=== PATIENT | female | born 1950 | race Caucasian/White ===

== ENCOUNTER → 2016-12-08 | Outpatient (CLI) | payer MEDICARE ==
--- NOTE | 2016-12-08 10:28 | BD ---
EXAMINATION TYPE: MG DEXA axial skeleton. DATE OF EXAM: 12/08/2016 10:04 AM COMPARISON: 12.03.2013 DEXA bone scan CLINICAL HISTORY: M85.8 OSTEOPENIA Height: 64 Weight: 135 FRAX RISK QUESTIONS: Alcohol (3 or more units per day): NO Family History (Parent hip fracture): NO Glucocorticoids (More than 3mos): NO (Ex: prednisone, prednisolone, methylprednisolone, dexamethasone, and hydrocortisone). History of Fracture in Adulthood: YES Secondary Osteoporosis: NO 1. Type 1 Diabetes: NO 2. Hyperthyroidism: NO 3. Menopause before 45: YES 4. Malnutrition: NO 5. Chronic liver disease: NO Rheumatoid Arthritis: NO Current Tobacco Use: NO RISK FACTORS HISTORY OF: Other Fractures since Age 48: YES, RT FOOT When: > 48 YRS OLD Family History of Osteoporosis: YES, HER MOTHER Smoke tobacco: NO Drink Alcohol: SOCIAL Active: YES Diet low in dairy products/other sources of calcium: NO Postmenopausal woman: HYST AT 37 YRS OLD Lost more than 2 inches in height since high school: YES Adrenal Insufficiency: NO MEDICATIONS: Additional Medications: NONE TO NOTE Additional History: EARLY MENOPAUSE, FX ADULT, AND TOUCH OF OSTEOARTHRITIS EXAM MEASUREMENTS: Bone mineral densitometry was performed using the [employer] System. Bone mineral density as measured about the Lumbar spine is: ----- L1-L4(G/cm2): 1.224 T Score Values are as follows: ----- L1: 0.5 ----- L2: 0.1 ----- L3: 0.2 ----- L4: 0.5 ----- L1-L4: 0.4 Bone mineral density has: Increased 0.3% since study of: 12.03.2013 Bone mineral density about the R hip (g/cm2): 0.825 Bone mineral density about the L hip (g/cm2): 0.841 T Score values are as follows: -----R Neck: -1.8 -----L Neck: -1.6 -----R Intertrochanter: -2.2 -----L Intertrochanter: -1.7 Bone mineral density has: Decreased -3.1% since study of: 12.03.2013 FRAX %'S: 16.3% FOR A MAJOR OSTEOPOROSIS FX AND 2.5% FOR A HIP FX.......PROBABILITY OF FX IN 10 Y RS TIME IMPRESSION: Osteopenia (T Score between -2.5 and -1 as noted by T score values in the bilateral hips remains pres ent. There remains slightly increased risk of fracture and the patient may be considered for treatmen t. Re-Screen 1-2 years. NOTE: T-SCORE=SD OF THE YOUNG ADULT MEAN.
--- NOTE | 2016-12-09 11:16 | MM ---
Reason for exam: screening (asymptomatic). Last mammogram was performed 2 years ago. History: Patient is postmenopausal. Physical Findings: A clinical breast exam by your physician is recommended on an annual basis and results should be correlated with mammographic findings. MG 3D Screening Mammo W/Cad Bilateral CC and MLO view(s) were taken. Prior study comparison: December 08, 2014, bilateral MG screening mammo w CAD. December 03, 2013, bilateral digital screening mammo w/CAD. The breast tissue is almost entirely fat. There is chronic nodularity in the left breast. No significant changes when compared with prior studies. ASSESSMENT: Benign, BI-RAD 2 RECOMMENDATION: Routine screening mammogram of both breasts in 1 year.
== END | disposition home or self-care (01) ==
LOC: RADMAMWWP 09:11
PROVIDERS: ATTEND Obstetrics & Gynecology
DX: Z12.31 Encounter for screening mammogram for malignant neoplasm of breast (principal); M85.88 Other specified disorders of bone density and structure, other site
CPT/HCPCS: 77080; 77063; G0202

== ENCOUNTER → 2018-06-25 | Outpatient (CLI) | payer MEDICARE ==
--- NOTE | 2018-06-25 11:23 | XR ---
Cervical spine HISTORY: Stiff neck, neck pain 3 views of the cervical spine on 5 images Open-mouth odontoid view is limited. There is minimal anterolisthesis grade 1 C4-5 and C5-6 and C6-7. Multilevel facet arthropathy changes present. Cervical vertebral bodies show preserved height and sandra ne mineralization. Mild disc height loss present at C5-6. IMPRESSION: Mild degenerative disc disease, facet arthropathy.
== END | disposition home or self-care (01) ==
LOC: RADXRMAIN 10:02
PROVIDERS: ATTEND Otolaryngology
DX: M50.30 Other cervical disc degeneration, unspecified cervical region (principal); M46.82 Other specified inflammatory spondylopathies, cervical region; M47.812 Spondylosis without myelopathy or radiculopathy, cervical region
CPT/HCPCS: 72040

== ENCOUNTER → 2018-11-05 | Outpatient (CLI) | payer MEDICARE ==
[2018-11-05 17:47] LABS: LDL Cholesterol,Calculated 106.6 mg/dL (0.0-131.0); VLDL Calculation 13.4 mg/dL (5.00-40.00)
== END | disposition home or self-care (01) ==
LOC: LABWHC1 07:38
PROVIDERS: ATTEND Obstetrics & Gynecology
DX: E78.5 Hyperlipidemia, unspecified (principal); Z13.220 Encounter for screening for lipoid disorders
CPT/HCPCS: 36415; 80061

== ENCOUNTER → 2018-12-10 | Outpatient (CLI) | payer MEDICARE ==
--- NOTE | 2018-12-10 17:13 | BD ---
EXAMINATION TYPE: Axial Bone Density DATE OF EXAM: 12/10/2018 COMPARISON: 12/08/2016 CLINICAL HISTORY: 67-year-old female disorder of bone Height: 64.5 IN Weight: 128 LBS FRAX RISK QUESTIONS: Secondary Osteoporosis: 3. Menopause before 45: YES PARTIAL HYST AGE 39 RISK FACTORS HISTORY OF: Family History of Osteoporosis: YES MOTHER Active: YES Postmenopausal woman: AGE 39 MEDICATIONS: Osteoporosis Medications: NOT NOW Which medication: BONIVA How Long: TOOK FOR 1 YEAR Additional Medications: NONE EXAM MEASUREMENTS: Bone mineral densitometry was performed using the [employer] System. Bone mineral density as measured about the Lumbar spine is: ----- L1-L4(G/cm2): 1.131 T Score Values are as follows: ----- L2: -0.6 ----- L3: -0.7 ----- L4: -0.1 ----- L1-L4: -0.4 Bone mineral density has: DECREASED -7.1% since study of: 12/08/2016 Bone mineral density about the R hip (g/cm2): 0.762 Bone mineral density about the L hip (g/cm2): 0.776 T Score values are as follows: -----R Neck: -2.0 -----L Neck: -1.9 -----R Total: -1.9 -----L Total: -1.6 Bone mineral density has: DECREASED -5.3% since study of: 12/08/2016 IMPRESSION: Osteopenia (T Score between -2.5 and -1). There is slightly increased risk of fracture and the patient may be considered for treatment. Re-Screen 2-5 years. NOTE: T-SCORE=SD OF THE YOUNG ADULT MEAN.
--- NOTE | 2018-12-11 11:08 | MM ---
Reason for exam: screening (asymptomatic). Last mammogram was performed 2 years ago. History: Patient is postmenopausal. Physical Findings: A clinical breast exam by your physician is recommended on an annual basis and results should be correlated with mammographic findings. MG Screening Mammo w CAD Bilateral CC and MLO view(s) were taken. Prior study comparison: December 08, 2016, bilateral MG 3d screening mammo w/cad. December 08, 2014, bilateral MG screening mammo w CAD. There are scattered fibroglandular densities. No suspicious abnormality. No significant changes when compared with prior studies. ASSESSMENT: Negative, BI-RAD 1 RECOMMENDATION: Routine screening mammogram of both breasts in 1 year.
== END | disposition home or self-care (01) ==
LOC: RADMAMWWP 08:49
PROVIDERS: ATTEND Obstetrics & Gynecology
DX: Z12.31 Encounter for screening mammogram for malignant neoplasm of breast (principal); M85.851 Other specified disorders of bone density and structure, right thigh; M85.852 Other specified disorders of bone density and structure, left thigh
CPT/HCPCS: 77067; 77080

== ENCOUNTER → 2020-04-17 | Outpatient (CLI) | payer MEDICARE ==
--- NOTE | 2020-04-23 10:32 | MM ---
Reason for exam: screening (asymptomatic). Last mammogram was performed 1 year and 4 months ago. History: Patient is postmenopausal. Physical Findings: A clinical breast exam by your physician is recommended on an annual basis and results should be correlated with mammographic findings. MG 3D Screening Mammo W/Cad Bilateral CC and MLO view(s) were taken. Prior study comparison: December 10, 2018, bilateral MG screening mammo w CAD. December 08, 2016, bilateral MG 3d screening mammo w/cad. No significant changes when compared with prior studies. ASSESSMENT: Benign, BI-RAD 2 RECOMMENDATION: Routine screening mammogram of both breasts in 1 year.
== END | disposition home or self-care (01) ==
LOC: RADMAMWWP 10:03
PROVIDERS: ATTEND Obstetrics & Gynecology
DX: Z12.31 Encounter for screening mammogram for malignant neoplasm of breast (principal)
CPT/HCPCS: 77063; 77067

== ENCOUNTER → 2021-06-28 | Outpatient (CLI) | payer MEDICARE ==
--- NOTE | 2021-06-28 19:21 | BD ---
EXAMINATION TYPE: Axial Bone Density DATE OF EXAM: 06/28/2021 COMPARISON: 12.10.2018 CLINICAL HISTORY: 70 YR OLD FEMALE.....ICD-10 CODE: M85.88 DISORDER OF BD Height: 63.5 Weight: 132 FRAX RISK QUESTIONS: History of Fracture in Adulthood: YES Secondary Osteoporosis: YES 3. Menopause before 45: YES RISK FACTORS HISTORY OF: BROKEN FOOT AN ADULT Family History of Osteoporosis: YES, MOTHER Postmenopausal woman: YES, AT AGE 39 YRS OLD Take estrogen and/or progesterone medications: YES, FOR ABOUT 10 YRS Hyperparathyroidism: NO Adrenal Insufficiency: NO MEDICATIONS: Prednisone or other steroids: YES, ON AND OFF IN THE PAST, NOT REGULARLY Osteoporosis Medications: YES, FOSAMAX, WEEKLY, FOR ABOUT 10 YRS Additional Medications: TYLENOL, ADVIL AND IMODIUM Additional History: NOTHING TO NOTE HERE EXCEPT OSTEOPOROSIS, ARTHRITIS EXAM MEASUREMENTS: Bone mineral densitometry was performed using the [employer] System. Bone mineral density as measured about the Lumbar spine is: ----- L1-L4(G/cm2): 1.207 T Score Values are as follows: ----- L1: 0.4 ----- L2: -0.2 ----- L3: 0.2 ----- L4: 0.4 ----- L1-L4: 0.2 Bone mineral density has: Increased 6.1% since study of: 12.10.2018 Bone mineral density about the R hip (g/cm2): 0.804 Bone mineral density about the L hip (g/cm2): 0.786 T Score values are as follows: -----R Neck: -2.1 -----L Neck: -2.2 -----R Total: -1.6 -----L Total: -1.8 Bone mineral density has: Increased 0.8% since study of: 12.10.2018 FRAX%s: THERE IS A 20.4% CHANCE FOR A MAJOR OSTEOPOROTIC FX AND A 5.0% FOR HIP.....PROBABILITY FO R FX IN 10 YRS TIME IMPRESSION: Osteopenia (T Score between -2.5 and -1). There is slightly increased risk of fracture and the patient may be considered for treatment. Re-Screen 2-5 years. NOTE: T-SCORE=SD OF THE YOUNG ADULT MEAN.
--- NOTE | 2021-06-29 07:30 | MM ---
Reason for exam: screening (asymptomatic). Last mammogram was performed 1 year and 2 months ago. History: Patient is postmenopausal. Took hormonal contraceptives for 20 years. Physical Findings: A clinical breast exam by your physician is recommended on an annual basis and results should be correlated with mammographic findings. MG 3D Screening Mammo W/Cad Bilateral CC and MLO view(s) were taken. Prior study comparison: April 17, 2020, bilateral MG 3d screening mammo w/cad. December 10, 2018, bilateral MG screening mammo w CAD. December 08, 2016, bilateral MG 3d screening mammo w/cad. There are scattered fibroglandular densities. There is no discrete abnormality. ASSESSMENT: Negative, BI-RAD 1 RECOMMENDATION: Routine screening mammogram of both breasts in 1 year.
== END | disposition home or self-care (01) ==
LOC: RADMAMWWP 10:12
PROVIDERS: ATTEND Obstetrics & Gynecology
DX: Z12.31 Encounter for screening mammogram for malignant neoplasm of breast (principal); Z78.0 Asymptomatic menopausal state
CPT/HCPCS: 77063; 77067; 77080

== ENCOUNTER → 2022-06-30 | Outpatient (CLI) | payer MEDICARE ==
--- NOTE | 2022-06-30 15:34 | MM ---
Reason for Exam: Screening (asymptomatic). Last screening mammogram was performed 12 month(s) ago. Patient History: Menarche at age 12. First Full-Term at age 18. Hysterectomy at age 38. Postmenopausal. Patient used Hormonal Contraceptives for 20 years. Risk Values: Nadege 5 year model risk: 1.4%. NCI Lifetime model risk: 3.6%. Prior Study Comparison: 12/10/2018 Bilateral Screening Mammogram, [facility]. 04/17/2020 Bilateral Screening Mammogram, [facility]. 06/28/2021 Bilateral Screening Mammogram, [facility]. Tissue Density: There are scattered fibroglandular densities. Findings: Analyzed By CAD. There is no suspicious group of microcalcifications or new suspicious mass in either breast. No significant change from prior exams. Overall Assessment: Negative, BI-RAD 1 Management: Screening Mammogram of both breasts in 1 year. A clinical breast exam by your physician is recommended on an annual basis and results should be correlated with mammographic findings. Electronically signed and approved by: Tomas Denise D.O.
== END | disposition home or self-care (01) ==
LOC: RADMAMWWP 09:04
PROVIDERS: ATTEND Obstetrics & Gynecology
DX: Z12.31 Encounter for screening mammogram for malignant neoplasm of breast (principal); Z78.0 Asymptomatic menopausal state
CPT/HCPCS: 77063; 77067

== ENCOUNTER → 2023-07-03 | Outpatient (CLI) | payer MEDICARE ==
--- NOTE | 2023-07-03 07:56 | MM ---
Reason for Exam: Screening (asymptomatic). Last screening mammogram was performed 12 month(s) ago. Patient History: Menarche at age 12. First Full-Term at age 18. Hysterectomy at age 38. Postmenopausal. Patient has history of breast feeding. Patient used Hormonal Contraceptives for 20 years. Risk Values: Nadege 5 year model risk: 1.4%. NCI Lifetime model risk: 3.3%. Prior Study Comparison: 04/17/2020 Bilateral Screening Mammogram, [facility]. 06/28/2021 Bilateral Screening Mammogram, [facility]. 06/30/2022 Bilateral MG 3D screening mammo w/cad, [facility]. Tissue Density: There are scattered fibroglandular densities. Findings: Analyzed By CAD. There is no suspicious group of microcalcifications or new suspicious mass in either breast. Overall Assessment: Negative, BI-RAD 1 Management: Screening Mammogram of both breasts in 1 year. A clinical breast exam by your physician is recommended on an annual basis and results should be correlated with mammographic findings. Note on Nadege scores and lifetime risk: 1. A Nadege score greater than 3% is considered moderate risk. If this is the case, consider specialist referral to assess eligibility for a risk reducing agent. If overall lifetime risk for the development of breast cancer is 20% or higher, the patient may qualify for future screening with alternating mammogram and breast MRI. Electronically signed and approved by: Tomas Denise D.O.
--- NOTE | 2023-07-03 09:40 | BD ---
EXAMINATION TYPE: Axial Bone Density DATE OF EXAM: 07/03/2023 CLINICAL HISTORY: 72 years old Female. ICD-10 CODE: M85.88 DISORDER OF BONE Height: 63.2 Weight: 130 FRAX RISK QUESTIONS: History of Fracture in Adulthood: yes Secondary Osteoporosis: yes 3. Menopause before 45: yes RISK FACTORS HISTORY OF: Family History of Osteoporosis: yes, mother Diet low in dairy products/other sources of calcium: yes Postmenopausal woman: at 39 yrs old Take estrogen and/or progesterone medications: in past for about 10 yrs. Hyperparathyroidism: no Adrenal Insufficiency: no MEDICATIONS: Prednisone or other steroids: not routinely. Osteoporosis Medications: yes...fosamax for about 12 yrs Additional Medications: advil, tylenol, imodium, Additional History: osteoarthritis, osteopenia, EXAM MEASUREMENTS: Bone mineral densitometry was performed using the [employer] System. Bone mineral density as measured about the Lumbar spine is: ----- L1-L4(G/cm2): 1.172 T Score Values are as follows: ----- L1: -0.1 ----- L2: -0.5 ----- L3: 0.2 ----- L4: -0.1 ----- L1-L4: -0.1 Z Score Values are as follows: ----- L1: 1.8 ----- L2: 1.5 ----- L3: 2.1 ----- L4: 1.9 ----- L1-L4: 1.9 Bone mineral density has: Decreased -2.9% since study of: 06.28.2021 Bone mineral density about the R hip (g/cm2): 0.797 Bone mineral density about the L hip (g/cm2): 0.806 T Score values are as follows: -----R Neck: -2.3 -----L Neck: -2.4 -----R Total: -1.7 -----L Total: -1.6 Z Score values are as follows: -----R Neck: -0.2 -----L Neck: -0.3 -----R Total: 0.2 -----L Total: 0.2 Bone mineral density has: Increased 0.8% since study of: 06.28.2021 FRAX%s: The graph provided illustrates a 27.2% chance for a major osteoporotic fx and a 17.0% chance for the hips probability for fx in 10 years time. IMPRESSION: Osteopenia (T Score between -2.5 and -1). There is slightly increased risk of fracture and the patient may be considered for treatment. Re-Screen 2-5 years. NOTE: T-SCORE=SD OF THE YOUNG ADULT MEAN.
== END | disposition home or self-care (01) ==
LOC: RADMAMWWP 07:31
PROVIDERS: ATTEND Obstetrics & Gynecology
DX: Z12.31 Encounter for screening mammogram for malignant neoplasm of breast (principal); M85.89 Other specified disorders of bone density and structure, multiple sites; Z78.0 Asymptomatic menopausal state
CPT/HCPCS: 77063; 77067; 77080

== ENCOUNTER → 2024-07-12 | Outpatient (CLI) | payer MEDICARE ==
--- NOTE | 2024-07-12 12:37 | MM ---
Reason for Exam: Screening (asymptomatic). Last screening mammogram was performed 12 month(s) ago. Patient History: Menarche at age 12. First Full-Term at age 18. Hysterectomy at age 38. Postmenopausal. Patient has history of breast feeding. Patient used Hormonal Contraceptives for 20 years. Risk Values: Nadege 5 year model risk: 1.4%. NCI Lifetime model risk: 3.1%. Prior Study Comparison: 06/28/2021 Bilateral Screening Mammogram, [facility]. 06/30/2022 Bilateral MG 3D screening mammo w/cad, [facility]. 07/03/2023 Bilateral MG 3D screening mammo w/cad, [facility]. Tissue Density: The breasts are almost entirely fatty. Findings: Analyzed By CAD. Right breast: There is no suspicious group of microcalcifications or new suspicious mass. Left breast: There is no suspicious group of microcalcifications or new suspicious mass. Overall Assessment: Negative, BI-RAD 1 Management: Screening Mammogram of both breasts in [address] [facility] will attempt to contact patient to return for supplemental views and ultrasound if indicated. Patient should continue monthly self-breast exams. A clinical breast exam by your physician is recommended on an annual basis. This exam should not preclude additional follow-up of suspicious palpable abnormalities. Note on Nadege scores and lifetime risk: 1. A Nadege score greater than 3% is considered moderate risk. If this is the case, consider specialist referral to assess eligibility for a risk reducing agent. 2. If overall lifetime risk for the development of breast cancer is 20% or higher, the patient may qualify for future screening with alternating mammogram and breast MRI. [facility], , 07/12/2024 12:34 PM. Electronically signed and approved by: Ronnie Lloyd DO
== END | disposition home or self-care (01) ==
LOC: RADMAMWWP 12:03
PROVIDERS: ATTEND Obstetrics & Gynecology
CPT/HCPCS: 77063; 77067